=== PATIENT | male | born 1980 | race Two or more races ===

== ENCOUNTER 2022-03-29 18:08 | Emergency (ER) | payer SELFPAY ==
[~2022-03-29] VITALS: Ht 165.1 cm; Wt 63.5 kg
--- NOTE | 2022-03-29 19:47 | NUR ---
BIBFAMIRADHA C/O BACK LEFT POSTERIOR THIGH INSECT BITE ON SUNDAY, SEEN BY GIVEN KEFLEX 500MG AND STILL TAKING IT. PT A/OX4. TOLERATING R/A WELL WITH NO SOB, RESP EVEN AND NON LABORED. CONNECTED PT TO POX AND MONITOR. SAFETY MEASURES IN PLACE
[2022-03-29 19:50] VITALS: BP 149/79
[2022-03-29] MEDS ORDERED: LIDOCAINE 1%-EPI 1:100,000 20 ML VIAL TP ONE (20:00)
[2022-03-29] MEDS ORDERED: LIDOCAINE 1%-EPI 1:100,000 20 ML VIAL ONE (20:09)
[2022-03-29] MEDS ORDERED: SULF1TAB48 PO (20:09)
--- NOTE | 2022-03-29 20:13 | NUR ---
[facility] P[employer]LE[employer] AT PT'S BEDSIDE FOR WOUNDCARE I&D TO LEFT THIGH
--- NOTE | 2022-03-29 20:35 | NUR ---
Patient discharged to home in stable condition. RX Written and verbal after care instructions given. Patient verbalizes understanding of instruction. pt ambulatory with a steady gait
== END 2022-03-29 22:20 | disposition home or self-care (01) ==
LOC: ER 18:20
DX: L02.416 Cutaneous abscess of left lower limb (principal)
CPT/HCPCS: 99283; 10060; A6403; A6407 ×2; J3490